=== PATIENT | female | born 1955 | race Caucasian/White ===

== ENCOUNTER 2023-04-24 20:11 | Inpatient (IN) | payer MEDICARE, OTHER ==
[~2023-04-24] VITALS: Ht 152.4 cm; Wt 73.9 kg
[2023-04-24] MEDS ORDERED: ASPI81TA31 (20:53)
[2023-04-24] MEDS ORDERED: METF500T (20:53)
[2023-04-24] MEDS ORDERED: LISI40TA13 (20:53)
[2023-04-24] MEDS ORDERED: CITA10TA9 (20:53)
[2023-04-24] MEDS ORDERED: LUMA42CA (20:53)
[2023-04-24] MEDS ORDERED: LEVO75TA (20:53)
[2023-04-24] MEDS ORDERED: METO-357 (20:53)
[2023-04-24] MEDS ORDERED: IV NS 1000 ML 1,000 ML IV ONE (21:15)
[2023-04-24 22:15] VITALS: BP 131/63; TEMP 97.8; O2SAT 100
[2023-04-24] MEDS ORDERED: CLONAZEPAM 0.5 MG TABLET PO PRN (22:30)
[2023-04-24] MEDS ORDERED: MAGNESIUM HYDROXIDE 30 ML LIQUID UDC PO PRN (22:30)
[2023-04-24] MEDS ORDERED: TEMAZEPAM 7.5 MG CAPSULE PO PRN (22:30)
[2023-04-24] MEDS ORDERED: BLOOD SUGAR DIAGNOSTIC 1 EACH STRIP VI ONE (22:30)
[2023-04-25] MEDS: LEVOTHYROXINE SODIUM 75 MCG TABLET PO SCH (06:43)
[2023-04-25 07:54] VITALS: BP 127/66; TEMP 98; O2SAT 98
[2023-04-25] MEDS: METFORMIN HCL 500 MG TABLET PO SCH ×2 (08:00→16:57)
[2023-04-25 08:30] LABS: BASOPHILS # (AUTO) 0.1 K/UL (0.0-0.2); BASOPHILS % (AUTO) 1.5 % (0.0-2.0); EOSINOPHILS # (AUTO) 0.1 K/uL (0.0-0.7); EOSINOPHILS % (AUTO) 1.5 % (0.0-7.0); HEMATOCRIT 37.8 % (31.2-41.9); HEMOGLOBIN 12.7 g/dL (10.9-14.3); LYMPHOCYTES # (AUTO) 1.6 K/uL (0.8-4.8); LYMPHOCYTES % (AUTO) 28.8 % (20.5-51.5); MEAN CORPUSCULAR HGB CONC 34 g/dL (32.3-35.6); MEAN CORPUSCULAR VOLUME 89.6 fL (75.5-95.3); MONOCYTES # (AUTO) 0.5 K/uL (0.1-1.30); MONOCYTES % (AUTO) 9.3 % (0.0-11.0); NEUTROPHILS # (AUTO) 3.2 K/uL (1.8-8.9); NEUTROPHILS % (AUTO) 58.9 % (38.5-71.5); PLATELET COUNT (AUTO) 173 K/uL (179-408); RED BLOOD CELL COUNT(AUTO) 4.22 MIL/uL (3.63-4.92); RED CELL DISTRIBUTION WIDTH 13.5 % (12.3-17.7); WHITE BLOOD COUNT (AUTO) 5.4 K/uL (3.8-11.8)
[2023-04-25 08:42] LABS: DIFFERENTIAL COMMENT 1
[2023-04-25 08:43] LABS: CALCIUM 8.9 mg/dL (8.5-10.1); CREATININE 0.6 mg/dL (0.6-1.3); MAGNESIUM 2.3 mg/dL (1.8-2.4); PHOSPHOROUS 3.2 mg/dL (2.5-4.9)
[2023-04-25 08:45] LABS: POTASSIUM 3.6 mmol/L (3.5-5.1)
[2023-04-25] MEDS ORDERED: LISINOPRIL 20 MG TABLET PO SCH (09:00)
[2023-04-25] MEDS: ASPIRIN 81 MG TAB.CHEW PO SCH (09:00)
[2023-04-25] MEDS ORDERED: METOPROLOL SUCCINATE XL 50 MG TAB.SR.24H PO SCH ×2 (09:00)
[2023-04-25] MEDS: LISINOPRIL 20 MG TABLET PO SCH (09:00)
[2023-04-25] MEDS: CITALOPRAM 10 MG TABLET PO SCH (13:21)
[2023-04-25 15:23] VITALS: BP 132/65; TEMP 98; O2SAT 98
[2023-04-25 20:00] VITALS: BP 150/88; TEMP 97.4; O2SAT 96
[2023-04-25] MEDS: QUETIAPINE FUMARATE 25 MG TABLET PO SCH (21:00)
[2023-04-26] MEDS: LEVOTHYROXINE SODIUM 75 MCG TABLET PO SCH (06:12)
[2023-04-26 07:50] VITALS: BP 147/76; TEMP 98.4; O2SAT 99
[2023-04-26] MEDS: METFORMIN HCL 500 MG TABLET PO SCH ×2 (08:00→18:00)
[2023-04-26 08:49] LABS: CALCIUM 9.1 mg/dL (8.5-10.1); CREATININE 0.6 mg/dL (0.6-1.3); POTASSIUM 3.6 mmol/L (3.5-5.1)
[2023-04-26] MEDS: ASPIRIN 81 MG TAB.CHEW PO SCH (09:00)
[2023-04-26] MEDS: LISINOPRIL 20 MG TABLET PO SCH (09:00)
[2023-04-26] MEDS: CITALOPRAM 10 MG TABLET PO SCH (09:00)
[2023-04-26 09:04] LABS: THYROID STIMULATING HORMONE 3.053 mIU/mL (0.358-3.740)
[2023-04-26] MEDS ORDERED: METO50TA16 PO (11:24)
[2023-04-26] MEDS ORDERED: ATOR40TA PO (11:25)
[2023-04-26 15:52] VITALS: BP 146/75; TEMP 98; O2SAT 98
[2023-04-26 19:45] VITALS: BP 136/67; TEMP 98.1; O2SAT 97
[2023-04-26] MEDS: ATORVASTATIN 40 MG TABLET PO SCH (20:34)
[2023-04-26] MEDS: QUETIAPINE FUMARATE 25 MG TABLET PO SCH (20:34)
[2023-04-27] MEDS: LEVOTHYROXINE SODIUM 75 MCG TABLET PO SCH (06:35)
[2023-04-27 07:55] VITALS: BP 157/76; TEMP 98.8; O2SAT 100
[2023-04-27] MEDS: METFORMIN HCL 500 MG TABLET PO SCH ×2 (08:00→17:28)
[2023-04-27] MEDS: LISINOPRIL 20 MG TABLET PO SCH (09:00)
[2023-04-27] MEDS: ASPIRIN 81 MG TAB.CHEW PO SCH (09:00)
[2023-04-27] MEDS: CITALOPRAM 10 MG TABLET PO SCH (09:00)
[2023-04-27] MEDS: METOPROLOL TARTRATE 50 MG TABLET PO SCH (09:00)
[2023-04-27 16:18] VITALS: BP 157/76; TEMP 98.3; O2SAT 99
[2023-04-27 20:05] VITALS: BP 152/82; TEMP 98.1; O2SAT 96
[2023-04-27] MEDS: QUETIAPINE FUMARATE 25 MG TABLET PO SCH (21:00)
[2023-04-27] MEDS: ATORVASTATIN 40 MG TABLET PO SCH (21:00)
[2023-04-28] MEDS: LEVOTHYROXINE SODIUM 75 MCG TABLET PO SCH (06:59)
[2023-04-28 07:59] VITALS: BP 164/79; TEMP 98.1; O2SAT 98
[2023-04-28] MEDS: METFORMIN HCL 500 MG TABLET PO SCH ×4 (08:00→18:03)
[2023-04-28] MEDS: ASPIRIN 81 MG TAB.CHEW PO SCH ×2 (08:51→09:00)
[2023-04-28] MEDS: METOPROLOL TARTRATE 50 MG TABLET PO SCH ×2 (08:52→09:00)
[2023-04-28] MEDS: CITALOPRAM 10 MG TABLET PO SCH ×2 (08:53→09:00)
[2023-04-28] MEDS: LISINOPRIL 20 MG TABLET PO SCH ×2 (08:53→09:00)
[2023-04-28 15:30] VITALS: BP 144/80; O2SAT 98
[2023-04-28] MEDS: CLONIDINE-TTS 1 PATCH TD SCH (15:33)
[2023-04-28 16:50] VITALS: BP 147/83; TEMP 98.5; O2SAT 97
[2023-04-28 20:00] VITALS: BP 139/77; TEMP 98.2; O2SAT 99
[2023-04-28] MEDS: ATORVASTATIN 40 MG TABLET PO SCH (20:36)
[2023-04-28] MEDS: QUETIAPINE FUMARATE 25 MG TABLET PO SCH (20:36)
[2023-04-29] MEDS: LEVOTHYROXINE SODIUM 75 MCG TABLET PO SCH (06:10)
[2023-04-29 07:51] VITALS: BP 150/73; TEMP 98; O2SAT 96
[2023-04-29] MEDS: METFORMIN HCL 500 MG TABLET PO SCH ×2 (08:00→18:00)
[2023-04-29] MEDS: LISINOPRIL 20 MG TABLET PO SCH (09:00)
[2023-04-29] MEDS: ASPIRIN 81 MG TAB.CHEW PO SCH (09:00)
[2023-04-29] MEDS ORDERED: METOPROLOL TARTRATE 50 MG TABLET PO SCH (09:00)
[2023-04-29] MEDS: CITALOPRAM 10 MG TABLET PO SCH (09:00)
[2023-04-29] MEDS: METOPROLOL TARTRATE 50 MG TABLET PO SCH (09:30)
[2023-04-29 16:35] VITALS: BP 120/66; TEMP 98.1; O2SAT 96
[2023-04-29 20:00] VITALS: BP 132/82; TEMP 97.9; O2SAT 96
[2023-04-29] MEDS: QUETIAPINE FUMARATE 25 MG TABLET PO SCH (20:16)
[2023-04-29] MEDS: ATORVASTATIN 40 MG TABLET PO SCH (20:16)
[2023-04-30] MEDS: LEVOTHYROXINE SODIUM 75 MCG TABLET PO SCH (06:34)
[2023-04-30] MEDS: METFORMIN HCL 500 MG TABLET PO SCH ×2 (08:00→18:00)
[2023-04-30] MEDS: ASPIRIN 81 MG TAB.CHEW PO SCH (08:38)
[2023-04-30] MEDS: CITALOPRAM 10 MG TABLET PO SCH (08:38)
[2023-04-30] MEDS: METOPROLOL TARTRATE 50 MG TABLET PO SCH (08:38)
[2023-04-30] MEDS: NEPRO (VANILLA) 237 ML CAN PO SCH (08:39)
[2023-04-30] MEDS: LISINOPRIL 20 MG TABLET PO SCH (08:39)
[2023-04-30 10:06] VITALS: BP 122/62; TEMP 98; O2SAT 99
[2023-04-30 15:33] VITALS: BP 136/45; TEMP 98; O2SAT 98
[2023-04-30 20:00] VITALS: BP 146/84; TEMP 97; O2SAT 97
[2023-04-30] MEDS: ATORVASTATIN 40 MG TABLET PO SCH (20:46)
[2023-04-30] MEDS: QUETIAPINE FUMARATE 25 MG TABLET PO SCH (20:46)
[2023-05-01] MEDS: LEVOTHYROXINE SODIUM 75 MCG TABLET PO SCH (06:21)
[2023-05-01 07:30] VITALS: BP 140/67; TEMP 97.8; O2SAT 98
[2023-05-01] MEDS: METFORMIN HCL 500 MG TABLET PO SCH ×2 (08:00→17:51)
[2023-05-01] MEDS: CITALOPRAM 10 MG TABLET PO SCH (08:55)
[2023-05-01] MEDS: ASPIRIN 81 MG TAB.CHEW PO SCH (08:55)
[2023-05-01] MEDS: NEPRO (VANILLA) 237 ML CAN PO SCH (08:55)
[2023-05-01] MEDS: METOPROLOL TARTRATE 50 MG TABLET PO SCH (08:56)
[2023-05-01] MEDS: LISINOPRIL 20 MG TABLET PO SCH (08:56)
[2023-05-01 15:35] VITALS: BP 147/76; TEMP 98; O2SAT 98
[2023-05-01 20:03] VITALS: BP 140/66; TEMP 98.1; O2SAT 96
[2023-05-01] MEDS: ATORVASTATIN 40 MG TABLET PO SCH (20:22)
[2023-05-01] MEDS: QUETIAPINE FUMARATE 25 MG TABLET PO SCH (20:23)
[2023-05-02] MEDS: LEVOTHYROXINE SODIUM 75 MCG TABLET PO SCH (06:51)
[2023-05-02] MEDS: METFORMIN HCL 500 MG TABLET PO SCH ×2 (08:00→18:00)
[2023-05-02 08:11] VITALS: BP 155/70; TEMP 98; O2SAT 100
[2023-05-02] MEDS: LISINOPRIL 20 MG TABLET PO SCH (09:00)
[2023-05-02] MEDS: CITALOPRAM 10 MG TABLET PO SCH (09:00)
[2023-05-02] MEDS: ASPIRIN 81 MG TAB.CHEW PO SCH (09:00)
[2023-05-02] MEDS: NEPRO (VANILLA) 237 ML CAN PO SCH (09:00)
[2023-05-02] MEDS: METOPROLOL TARTRATE 50 MG TABLET PO SCH (09:00)
[2023-05-02 15:08] VITALS: BP 129/77; TEMP 98.4; O2SAT 98
[2023-05-02 20:04] VITALS: BP 136/74; TEMP 98.1; O2SAT 99
[2023-05-02] MEDS: ATORVASTATIN 40 MG TABLET PO SCH (20:39)
[2023-05-02] MEDS: QUETIAPINE FUMARATE 25 MG TABLET PO SCH (20:39)
[2023-05-03] MEDS: LEVOTHYROXINE SODIUM 75 MCG TABLET PO SCH (06:10)
[2023-05-03] MEDS: METFORMIN HCL 500 MG TABLET PO SCH ×2 (08:00→18:00)
[2023-05-03 08:08] VITALS: BP 152/84; TEMP 98; O2SAT 98
[2023-05-03] MEDS: CITALOPRAM 10 MG TABLET PO SCH (09:00)
[2023-05-03] MEDS: METOPROLOL TARTRATE 50 MG TABLET PO SCH (09:00)
[2023-05-03] MEDS: ASPIRIN 81 MG TAB.CHEW PO SCH (09:00)
[2023-05-03] MEDS: LISINOPRIL 20 MG TABLET PO SCH (09:00)
[2023-05-03] MEDS: NEPRO (VANILLA) 237 ML CAN PO SCH (09:11)
[2023-05-03 15:27] VITALS: BP 125/76; TEMP 98.4; O2SAT 98
[2023-05-03] MEDS ORDERED: QUETIAPINE FUMARATE 25 MG TABLET PO SCH (15:30)
[2023-05-03] MEDS ORDERED: HALOPERIDOL LACTATE 5 MG/1 ML VIAL IM SCH (17:00)
[2023-05-03 19:53] VITALS: BP 134/68; TEMP 98.3; O2SAT 96
[2023-05-03] MEDS: ATORVASTATIN 40 MG TABLET PO SCH (21:00)
[2023-05-03] MEDS ORDERED: diphenhydrAMINE 50 MG/1 ML VIAL IM SCH (21:00)
[2023-05-03] MEDS: QUETIAPINE FUMARATE 25 MG TABLET PO SCH (21:57)
[2023-05-04] MEDS: LEVOTHYROXINE SODIUM 75 MCG TABLET PO SCH (06:41)
[2023-05-04] MEDS: METFORMIN HCL 500 MG TABLET PO SCH ×2 (08:00→17:04)
[2023-05-04 08:03] VITALS: BP 121/68; TEMP 98.1; O2SAT 98
[2023-05-04] MEDS: ASPIRIN 81 MG TAB.CHEW PO SCH (08:18)
[2023-05-04] MEDS: CITALOPRAM 10 MG TABLET PO SCH ×2 (08:19→09:16)
[2023-05-04] MEDS: METOPROLOL TARTRATE 50 MG TABLET PO SCH (08:19)
[2023-05-04] MEDS: QUETIAPINE FUMARATE 25 MG TABLET PO SCH ×3 (08:20→21:00)
[2023-05-04] MEDS: NEPRO (VANILLA) 237 ML CAN PO SCH (08:20)
[2023-05-04] MEDS: LISINOPRIL 20 MG TABLET PO SCH (08:20)
[2023-05-04] MEDS ORDERED: diphenhydrAMINE 50 MG/1 ML VIAL IM PRN (09:00)
[2023-05-04 16:08] VITALS: BP 129/78; TEMP 98.5; O2SAT 97
[2023-05-04 20:00] VITALS: BP 114/67; TEMP 98.2; O2SAT 97
[2023-05-04] MEDS: ATORVASTATIN 40 MG TABLET PO SCH (21:00)
[2023-05-04] MEDS: HALOPERIDOL LACTATE 5 MG/1 ML VIAL IM PRN (21:13)
[2023-05-05] MEDS: LEVOTHYROXINE SODIUM 75 MCG TABLET PO SCH (06:09)
[2023-05-05] MEDS: METFORMIN HCL 500 MG TABLET PO SCH ×2 (08:00→18:00)
[2023-05-05 08:13] VITALS: BP 154/71; TEMP 98.4; O2SAT 96
[2023-05-05] MEDS: CITALOPRAM 10 MG TABLET PO SCH (08:44)
[2023-05-05] MEDS: ASPIRIN 81 MG TAB.CHEW PO SCH (08:44)
[2023-05-05] MEDS: QUETIAPINE FUMARATE 25 MG TABLET PO SCH ×2 (08:44→20:06)
[2023-05-05] MEDS: LISINOPRIL 20 MG TABLET PO SCH (08:45)
[2023-05-05] MEDS: METOPROLOL TARTRATE 50 MG TABLET PO SCH (08:45)
[2023-05-05] MEDS: NEPRO (VANILLA) 237 ML CAN PO SCH (08:46)
[2023-05-05] MEDS: CLONIDINE-TTS 1 PATCH TD SCH (13:52)
[2023-05-05 16:53] VITALS: BP 133/66; TEMP 98.3; O2SAT 96
[2023-05-05] MEDS: MAG HYDROX/AL HYDROX/SIMETH 30 ML LIQUID UDC PO PRN (18:05)
[2023-05-05 20:00] VITALS: BP 114/64; TEMP 98.1; O2SAT 96
[2023-05-05] MEDS: ATORVASTATIN 40 MG TABLET PO SCH (20:06)
[2023-05-06] MEDS: MAG HYDROX/AL HYDROX/SIMETH 30 ML LIQUID UDC PO PRN (00:43)
[2023-05-06] MEDS: LEVOTHYROXINE SODIUM 75 MCG TABLET PO SCH (06:42)
[2023-05-06] MEDS: METFORMIN HCL 500 MG TABLET PO SCH ×2 (08:00→18:00)
[2023-05-06 08:04] VITALS: BP 134/86; TEMP 98.2; O2SAT 98
[2023-05-06] MEDS: ASPIRIN 81 MG TAB.CHEW PO SCH (09:00)
[2023-05-06] MEDS: METOPROLOL TARTRATE 50 MG TABLET PO SCH (09:18)
[2023-05-06] MEDS: LISINOPRIL 20 MG TABLET PO SCH (09:19)
[2023-05-06] MEDS: QUETIAPINE FUMARATE 25 MG TABLET PO SCH ×2 (09:19→20:44)
[2023-05-06] MEDS: CITALOPRAM 10 MG TABLET PO SCH (09:19)
[2023-05-06] MEDS: NEPRO (VANILLA) 237 ML CAN PO SCH (09:20)
[2023-05-06 15:11] VITALS: BP 90/47; TEMP 98.2; O2SAT 98
[2023-05-06 20:00] VITALS: BP 99/55; TEMP 98; O2SAT 98
[2023-05-06] MEDS: ATORVASTATIN 40 MG TABLET PO SCH (20:44)
[2023-05-07] MEDS: LEVOTHYROXINE SODIUM 75 MCG TABLET PO SCH (07:00)
[2023-05-07] MEDS: METFORMIN HCL 500 MG TABLET PO SCH ×2 (07:15→17:23)
[2023-05-07 08:06] VITALS: BP 102/58; TEMP 98.2; O2SAT 99
[2023-05-07] MEDS: CITALOPRAM 10 MG TABLET PO SCH (08:42)
[2023-05-07] MEDS: LISINOPRIL 20 MG TABLET PO SCH (08:43)
[2023-05-07] MEDS: QUETIAPINE FUMARATE 25 MG TABLET PO SCH ×2 (08:43→21:07)
[2023-05-07] MEDS: NEPRO (VANILLA) 237 ML CAN PO SCH (08:43)
[2023-05-07] MEDS: ASPIRIN 81 MG TAB.CHEW PO SCH (08:43)
[2023-05-07] MEDS: METOPROLOL TARTRATE 50 MG TABLET PO SCH (08:43)
[2023-05-07] MEDS: MAG HYDROX/AL HYDROX/SIMETH 30 ML LIQUID UDC PO PRN ×2 (14:42→21:19)
[2023-05-07 15:19] VITALS: BP 110/66; TEMP 98.2; O2SAT 96
[2023-05-07] MEDS: PROTEIN SUPPLEMENT (PROSTAT) 30 ML LIQUID PO SCH (17:00)
[2023-05-07 20:00] VITALS: BP 113/65; TEMP 98.2; O2SAT 97
[2023-05-07] MEDS: ATORVASTATIN 40 MG TABLET PO SCH (21:07)
[2023-05-08] MEDS: LEVOTHYROXINE SODIUM 75 MCG TABLET PO SCH (06:35)
[2023-05-08] MEDS: PANTOPRAZOLE SODIUM 40 MG TABLET.DR PO SCH (06:35)
[2023-05-08 07:58] VITALS: BP 134/85; TEMP 98.2; O2SAT 96
[2023-05-08] MEDS: ASPIRIN 81 MG TAB.CHEW PO SCH (08:20)
[2023-05-08] MEDS: CITALOPRAM 20 MG TABLET PO SCH (08:20)
[2023-05-08] MEDS: METFORMIN HCL 500 MG TABLET PO SCH ×2 (08:20→17:23)
[2023-05-08] MEDS: QUETIAPINE FUMARATE 25 MG TABLET PO SCH ×2 (08:22→20:17)
[2023-05-08] MEDS: METOPROLOL TARTRATE 50 MG TABLET PO SCH (08:23)
[2023-05-08] MEDS: LISINOPRIL 20 MG TABLET PO SCH (08:24)
[2023-05-08] MEDS: NEPRO (VANILLA) 237 ML CAN PO SCH (08:24)
[2023-05-08] MEDS: PROTEIN SUPPLEMENT (PROSTAT) 30 ML LIQUID PO SCH ×2 (08:28→17:00)
[2023-05-08 16:12] VITALS: BP 90/50; TEMP 98; O2SAT 98
[2023-05-08 20:00] VITALS: BP 118/66; TEMP 98; O2SAT 95
[2023-05-08] MEDS: ATORVASTATIN 40 MG TABLET PO SCH (20:17)
[2023-05-09] MEDS: LEVOTHYROXINE SODIUM 75 MCG TABLET PO SCH (06:44)
[2023-05-09] MEDS: PANTOPRAZOLE SODIUM 40 MG TABLET.DR PO SCH (06:44)
[2023-05-09 07:57] VITALS: BP 122/81; TEMP 98; O2SAT 98
[2023-05-09] MEDS: ASPIRIN 81 MG TAB.CHEW PO SCH (08:50)
[2023-05-09] MEDS: QUETIAPINE FUMARATE 25 MG TABLET PO SCH ×2 (08:50→20:17)
[2023-05-09] MEDS: METFORMIN HCL 500 MG TABLET PO SCH ×2 (08:50→17:36)
[2023-05-09] MEDS: METOPROLOL TARTRATE 50 MG TABLET PO SCH (08:51)
[2023-05-09] MEDS: CITALOPRAM 20 MG TABLET PO SCH (08:51)
[2023-05-09] MEDS: LISINOPRIL 20 MG TABLET PO SCH (08:52)
[2023-05-09] MEDS: PROTEIN SUPPLEMENT (PROSTAT) 30 ML LIQUID PO SCH ×2 (08:53→17:00)
[2023-05-09] MEDS: NEPRO (VANILLA) 237 ML CAN PO SCH (08:59)
[2023-05-09 15:49] VITALS: BP 90/51; TEMP 98; O2SAT 98
[2023-05-09 19:53] VITALS: BP 100/52; TEMP 97.8; O2SAT 96
[2023-05-09] MEDS: ATORVASTATIN 40 MG TABLET PO SCH (20:16)
[2023-05-10] MEDS: PANTOPRAZOLE SODIUM 40 MG TABLET.DR PO SCH (06:03)
[2023-05-10] MEDS: LEVOTHYROXINE SODIUM 75 MCG TABLET PO SCH (06:03)
[2023-05-10] MEDS: METFORMIN HCL 500 MG TABLET PO SCH ×2 (08:00→17:26)
[2023-05-10 08:55] VITALS: BP 114/70; TEMP 97.8; O2SAT 98
[2023-05-10] MEDS: METOPROLOL TARTRATE 50 MG TABLET PO SCH (09:00)
[2023-05-10] MEDS: QUETIAPINE FUMARATE 25 MG TABLET PO SCH (09:00)
[2023-05-10] MEDS: PROTEIN SUPPLEMENT (PROSTAT) 30 ML LIQUID PO SCH ×2 (09:00→17:00)
[2023-05-10] MEDS: ASPIRIN 81 MG TAB.CHEW PO SCH (09:00)
[2023-05-10] MEDS: CITALOPRAM 20 MG TABLET PO SCH (09:00)
[2023-05-10] MEDS: LISINOPRIL 20 MG TABLET PO SCH (09:00)
[2023-05-10] MEDS: HALOPERIDOL LACTATE 5 MG/1 ML VIAL IM PRN (10:21)
[2023-05-10] MEDS: NEPRO (VANILLA) 237 ML CAN PO SCH (10:35)
[2023-05-10] MEDS: MAG HYDROX/AL HYDROX/SIMETH 30 ML LIQUID UDC PO PRN (13:13)
[2023-05-10 15:40] VITALS: BP 138/78; TEMP 98; O2SAT 98
[2023-05-10 19:57] VITALS: BP 126/74; TEMP 98.1; O2SAT 96
[2023-05-10] MEDS ORDERED: QUETIAPINE FUMARATE 25 MG TABLET PO SCH (21:00)
[2023-05-10] MEDS: QUETIAPINE FUMARATE 100 MG TABLET PO SCH (21:00)
[2023-05-10] MEDS: ACETAMINOPHEN 325 MG TABLET PO PRN (21:00)
[2023-05-10] MEDS: ATORVASTATIN 40 MG TABLET PO SCH (21:00)
[2023-05-11] MEDS: LEVOTHYROXINE SODIUM 75 MCG TABLET PO SCH (07:19)
[2023-05-11] MEDS: PANTOPRAZOLE SODIUM 40 MG TABLET.DR PO SCH (07:19)
[2023-05-11 07:22] LABS: BASOPHILS # (AUTO) 0.1 K/UL (0.0-0.2); BASOPHILS % (AUTO) 1.1 % (0.0-2.0); EOSINOPHILS # (AUTO) 0.1 K/uL (0.0-0.7); EOSINOPHILS % (AUTO) 1.6 % (0.0-7.0); HEMOGLOBIN 12.3 g/dL (10.9-14.3); LYMPHOCYTES # (AUTO) 1.6 K/uL (0.8-4.8); LYMPHOCYTES % (AUTO) 29.9 % (20.5-51.5); MEAN CORPUSCULAR HEMOGLOBIN 29.9 uug (24.7-32.8); MEAN CORPUSCULAR HGB CONC 34 g/dL (32.3-35.6); MEAN CORPUSCULAR VOLUME 87.8 fL (75.5-95.3); MONOCYTES # (AUTO) 0.6 K/uL (0.1-1.30); MONOCYTES % (AUTO) 10.3 % (0.0-11.0); NEUTROPHILS # (AUTO) 3.1 K/uL (1.8-8.9); NEUTROPHILS % (AUTO) 57.1 % (38.5-71.5); PLATELET COUNT (AUTO) 368 K/uL (179-408); RED CELL DISTRIBUTION WIDTH 13.6 % (12.3-17.7); WHITE BLOOD COUNT (AUTO) 5.5 K/uL (3.8-11.8)
[2023-05-11 07:26] LABS: DIFFERENTIAL COMMENT 1
[2023-05-11 07:38] LABS: ALBUMIN 3.4 g/dL (3.4-5.0); BILIRUBIN,TOTAL 0.7 mg/dL (0.2-1.0); CALCIUM 9.4 mg/dL (8.5-10.1); CREATININE 0.8 mg/dL (0.6-1.3); MAGNESIUM 2.1 mg/dL (1.8-2.4); PHOSPHOROUS 3.8 mg/dL (2.5-4.9); POTASSIUM 4.1 mmol/L (3.5-5.1); TOTAL PROTEIN, SERUM 7.9 g/dL (6.4-8.2)
[2023-05-11 07:43] VITALS: BP 116/60; TEMP 98.3; O2SAT 97
[2023-05-11] MEDS: ASPIRIN 81 MG TAB.CHEW PO SCH (08:35)
[2023-05-11] MEDS: METFORMIN HCL 500 MG TABLET PO SCH ×2 (08:35→17:11)
[2023-05-11] MEDS: METOPROLOL TARTRATE 50 MG TABLET PO SCH (08:36)
[2023-05-11] MEDS: QUETIAPINE FUMARATE 100 MG TABLET PO SCH ×2 (08:36→21:27)
[2023-05-11] MEDS: LISINOPRIL 20 MG TABLET PO SCH (08:37)
[2023-05-11] MEDS: CITALOPRAM 20 MG TABLET PO SCH (08:38)
[2023-05-11] MEDS: PROTEIN SUPPLEMENT (PROSTAT) 30 ML LIQUID PO SCH ×2 (08:38→17:12)
[2023-05-11] MEDS: NEPRO (VANILLA) 237 ML CAN PO SCH (08:38)
[2023-05-11] MEDS: ACETAMINOPHEN 325 MG TABLET PO PRN (08:40)
[2023-05-11] MEDS: MAG HYDROX/AL HYDROX/SIMETH 30 ML LIQUID UDC PO PRN ×2 (12:15→21:55)
[2023-05-11 16:07] VITALS: BP 90/58; TEMP 98.1; O2SAT 98
[2023-05-11] MEDS: SODIUM CHLORIDE 1,000 MG TABLET PO SCH (17:11)
[2023-05-11 20:00] VITALS: BP 97/55; TEMP 97.6; O2SAT 98
[2023-05-11] MEDS: ATORVASTATIN 40 MG TABLET PO SCH (21:27)
[2023-05-12] MEDS: LEVOTHYROXINE SODIUM 75 MCG TABLET PO SCH (06:47)
[2023-05-12] MEDS: PANTOPRAZOLE SODIUM 40 MG TABLET.DR PO SCH (06:47)
[2023-05-12 07:41] LABS: CALCIUM 9.2 mg/dL (8.5-10.1); CREATININE 0.9 mg/dL (0.6-1.3); MAGNESIUM 2.2 mg/dL (1.8-2.4); PHOSPHOROUS 3.8 mg/dL (2.5-4.9); POTASSIUM 4.2 mmol/L (3.5-5.1)
[2023-05-12 08:15] VITALS: BP 116/68; TEMP 98.2; O2SAT 97
[2023-05-12 08:18] LABS: URIC ACID 4.1 mg/dL (2.6-6.0)
[2023-05-12] MEDS: CITALOPRAM 20 MG TABLET PO SCH (08:39)
[2023-05-12] MEDS: METFORMIN HCL 500 MG TABLET PO SCH ×2 (08:39→17:06)
[2023-05-12] MEDS: LISINOPRIL 20 MG TABLET PO SCH (08:39)
[2023-05-12] MEDS: ASPIRIN 81 MG TAB.CHEW PO SCH (08:39)
[2023-05-12] MEDS: SODIUM CHLORIDE 1,000 MG TABLET PO SCH ×2 (08:39→17:06)
[2023-05-12] MEDS: NEPRO (VANILLA) 237 ML CAN PO SCH (08:41)
[2023-05-12] MEDS: METOPROLOL TARTRATE 50 MG TABLET PO SCH (08:41)
[2023-05-12] MEDS: PROTEIN SUPPLEMENT (PROSTAT) 30 ML LIQUID PO SCH ×2 (08:42→17:14)
[2023-05-12] MEDS: QUETIAPINE FUMARATE 100 MG TABLET PO SCH ×2 (08:44→20:26)
[2023-05-12] MEDS: CLONIDINE-TTS 1 PATCH TD SCH (13:41)
[2023-05-12 16:19] VITALS: BP 90/54; TEMP 98; O2SAT 97
[2023-05-12 19:48] VITALS: BP 101/60; TEMP 98.1; O2SAT 96
[2023-05-12] MEDS: ATORVASTATIN 40 MG TABLET PO SCH (20:26)
[2023-05-12] MEDS: MAG HYDROX/AL HYDROX/SIMETH 30 ML LIQUID UDC PO PRN (20:46)
[2023-05-13] MEDS: PANTOPRAZOLE SODIUM 40 MG TABLET.DR PO SCH (06:52)
[2023-05-13] MEDS: LEVOTHYROXINE SODIUM 75 MCG TABLET PO SCH (06:52)
[2023-05-13 07:48] LABS: CALCIUM 9.5 mg/dL (8.5-10.1); CREATININE 0.9 mg/dL (0.6-1.3); POTASSIUM 4.3 mmol/L (3.5-5.1)
[2023-05-13 07:53] VITALS: BP 112/60; TEMP 98.1; O2SAT 98
[2023-05-13] MEDS: CITALOPRAM 20 MG TABLET PO SCH (08:56)
[2023-05-13] MEDS: SODIUM CHLORIDE 1,000 MG TABLET PO SCH ×2 (08:56→17:16)
[2023-05-13] MEDS: METFORMIN HCL 500 MG TABLET PO SCH ×2 (08:56→17:16)
[2023-05-13] MEDS: QUETIAPINE FUMARATE 100 MG TABLET PO SCH ×2 (08:56→20:33)
[2023-05-13] MEDS: METOPROLOL TARTRATE 50 MG TABLET PO SCH (08:57)
[2023-05-13] MEDS: ASPIRIN 81 MG TAB.CHEW PO SCH (08:57)
[2023-05-13] MEDS: LISINOPRIL 20 MG TABLET PO SCH (08:57)
[2023-05-13] MEDS: NEPRO (VANILLA) 237 ML CAN PO SCH (08:58)
[2023-05-13] MEDS: PROTEIN SUPPLEMENT (PROSTAT) 30 ML LIQUID PO SCH ×2 (08:58→16:59)
[2023-05-13 14:07] VITALS: BP 103/57; TEMP 98.3; O2SAT 97
[2023-05-13 19:59] VITALS: BP 111/57; TEMP 98.2; O2SAT 98
[2023-05-13] MEDS: ATORVASTATIN 40 MG TABLET PO SCH (20:33)
[2023-05-14] MEDS: LEVOTHYROXINE SODIUM 75 MCG TABLET PO SCH (07:21)
[2023-05-14] MEDS: PANTOPRAZOLE SODIUM 40 MG TABLET.DR PO SCH (07:21)
[2023-05-14 07:30] VITALS: BP 122/79; TEMP 98.4; O2SAT 99
[2023-05-14] MEDS: NEPRO (VANILLA) 237 ML CAN PO SCH (09:00)
[2023-05-14] MEDS: PROTEIN SUPPLEMENT (PROSTAT) 30 ML LIQUID PO SCH ×2 (09:00→17:00)
[2023-05-14] MEDS: QUETIAPINE FUMARATE 100 MG TABLET PO SCH ×2 (09:07→21:26)
[2023-05-14] MEDS: ASPIRIN 81 MG TAB.CHEW PO SCH (09:07)
[2023-05-14] MEDS: CITALOPRAM 20 MG TABLET PO SCH (09:08)
[2023-05-14] MEDS: METFORMIN HCL 500 MG TABLET PO SCH ×2 (09:08→17:09)
[2023-05-14] MEDS: SODIUM CHLORIDE 1,000 MG TABLET PO SCH ×2 (09:08→17:09)
[2023-05-14] MEDS: LISINOPRIL 20 MG TABLET PO SCH (09:09)
[2023-05-14] MEDS: METOPROLOL TARTRATE 50 MG TABLET PO SCH (09:09)
[2023-05-14 15:29] VITALS: BP 90/53; TEMP 98.4; O2SAT 99
[2023-05-14 19:38] VITALS: BP 102/54; TEMP 98.2; O2SAT 98
[2023-05-14] MEDS: ATORVASTATIN 40 MG TABLET PO SCH (20:30)
[2023-05-15] MEDS: PANTOPRAZOLE SODIUM 40 MG TABLET.DR PO SCH (06:04)
[2023-05-15] MEDS ORDERED: LEVOTHYROXINE SODIUM 100 MCG TABLET PO SCH (07:00)
[2023-05-15] MEDS ORDERED: LEVOTHYROXINE SODIUM 75 MCG TABLET PO SCH (07:00)
[2023-05-15 07:44] VITALS: BP 124/56; TEMP 98.2; O2SAT 99
[2023-05-15 08:44] VITALS: BP 124/56
[2023-05-15] MEDS: LISINOPRIL 20 MG TABLET PO SCH (08:44)
[2023-05-15] MEDS: METOPROLOL TARTRATE 50 MG TABLET PO SCH (08:44)
[2023-05-15] MEDS: QUETIAPINE FUMARATE 100 MG TABLET PO SCH (08:45)
[2023-05-15] MEDS: METFORMIN HCL 500 MG TABLET PO SCH (08:45)
[2023-05-15] MEDS: SODIUM CHLORIDE 1,000 MG TABLET PO SCH (08:45)
[2023-05-15] MEDS: ASPIRIN 81 MG TAB.CHEW PO SCH (08:45)
[2023-05-15] MEDS: CITALOPRAM 20 MG TABLET PO SCH (08:45)
[2023-05-15] MEDS: NEPRO (VANILLA) 237 ML CAN PO SCH (09:00)
[2023-05-15] MEDS: PROTEIN SUPPLEMENT (PROSTAT) 30 ML LIQUID PO SCH (09:00)
[2023-05-15] MEDS: MAG HYDROX/AL HYDROX/SIMETH 30 ML LIQUID UDC PO PRN (11:12)
== END 2023-05-15 15:00 | DRG 885 ==
LOC: ER 20:16 → GPS 20:59
PROVIDERS: ADMIT Psychiatry & Neurology Psychiatry; ATTEND Student in an Organized Health Care Education/Training Program
DX: F33.3 Major depressive disorder, recurrent, severe with psychotic symptoms (principal); E87.1 Hypo-osmolality and hyponatremia; E11.9 Type 2 diabetes mellitus without complications; F94.0 Selective mutism; E03.9 Hypothyroidism, unspecified; E66.9 Obesity, unspecified; Z68.31 Body mass index [BMI] 31.0-31.9, adult; D69.6 Thrombocytopenia, unspecified; Z79.82 Long term (current) use of aspirin; Z79.84 Long term (current) use of oral hypoglycemic drugs; I10 Essential (primary) hypertension; I25.10 Atherosclerotic heart disease of native coronary artery without angina pectoris; Z91.148 Patient's other noncompliance with medication regimen for other reason; Z79.899 Other long term (current) drug therapy
CPT/HCPCS: 36415; 83735; 84100; 84443; 84480; 84550; 85025; 93005; J1200; J1630; J7040